=== PATIENT | female | born 1960 | race Caucasian/White ===

== ENCOUNTER 2018-06-26 11:35 | Day surgery (SDC) | payer OTHER ==
[2018-06-23 10:21] LABS: Urine Appearance CLEAR; Urine Bilirubin NEGATIVE (NEG); Urine Blood NEGATIVE (NEG); Urine Color YELLOW; Urine Glucose NEGATIVE (NEG); Urine Protein NEGATIVE (NEG); Urine Specific Gravity 1.025 (1.005-1.030); Urine Urobilinogen 0.2 mg/dL (0.2-1.0)
[2018-06-23 10:25] LABS: Urine Microscopic Reflex NO UMIC
[2018-06-23 10:29] LABS: Absolute Lymphocytes (CBC) 1.9 K/uL (0.7-4.9); Absolute Monocytes 0.6 K/uL (0.1-1.3); Absolute Neutrophil 4.9 K/uL (1.8-8.0); Basophils % 0.8 % (0-1.3); Eosinophils % 1.4 % (0-4.4); Hematocrit 43.9 % (36.0-45.0); Lymphocytes % 25.2 % (15.3-44.8); MPV 9.1 fL (7.6-11.3); Monocytes % 7.5 % (3.3-12.3); RBC Red Blood Cell Count 5.08 M/uL (3.86-4.86)
--- OUTSIDE RECORDS SUMMARY | 2018-06-26 11:37 | XMS REPORT | Encounter Summary ---
:1960 Author Care Team Providers Name Role Phone Maximino Bourne MD Primary Care Provider [phone] Reason for Visit Follow Up Visit Instructions 1. Pelvic mass 2. Hypercholesterolemia Discussion Note: None recorded.Patient educational handouts: No information available. Plan of Care Reminders Provider Appointments None recorded. Lab None recorded. Referral None recorded. Procedures None recorded. Surgeries None recorded. Imaging None recorded. Medications Name Start Date estradiol 0.01% (0.1 mg/gram) vaginal cream simvastatin 10 mg tablet TAKE 1 TABLET BY MOUTH EVERY DAY Medications Administered None recorded. Vitals Height Weight BMI Blood Pressure 66 in 182 lbs 16 oz 29.5 kg/m2 122/82 mm[Hg] Lab Results Date Name Specimen Result Interpretation Description Value Range Status Address Lipid Normal Cholesterol, 196 mg/dL <200 [facility] Panel, Total mg/dL Diagnostics - Serum [facility]: [address], [place] Normal HDL Cholesterol 55 mg/dL >50 [facility] mg/dL Diagnostics [facility]: [address], [place] Normal Triglycerides 130 mg/dL <150 [facility] mg/dL Diagnostics [facility]: [address], [place] High LDL-cholesterol 116 mg/dL [facility] (calc) Diagnostics [facility]: [address], [place] Normal Chol/hdlc Ratio 3.6 (calc) <5.0 [facility] (calc) Diagnostics [facility]: [address], [place] High Non HDL 141 mg/dL <130 [facility] Cholesterol (calc) mg/dL Diagnostics - (calc) [facility]: [address], [place] CMP, High Glucose 108 mg/dL 65-99 [facility] Serum or mg/dL Diagnostics - Plasma [facility]: [address], [place] Normal Urea Nitrogen 12 mg/dL 7-25 [facility] (BUN) mg/dL Diagnostics [facility]: [address], [place] Normal Creatinine 0.69 mg/dL 0.50-0.9 [facility] 9 mg/dL Diagnostics [facility]: [address] [facility], [place] Normal eGFR Non-afr. 95 > or=60 [facility] Norwegian mL/min/1.73m2 mL/min/1 Diagnostics - .73m2 [facility]: [address], [place] Normal eGFR 110 > or=60 [facility] [place] mL/min/1.73m2 mL/min/1 Diagnostics - .73m2 [facility]: [address] [facility], [place] BUN/creatinine not 6-22 [facility] Ratio applicable (calc) Diagnostics - (calc) [facility]: [address] [facility], [place] Normal Sodium 140 mmol/L 135-146 [facility] mmol/L Diagnostics [facility]: [address] [address], [place] Normal Potassium 4.6 mmol/L 3.5-5.3 [facility] mmol/L Diagnostics [facility]: [address] [facility], [place] Normal Chloride 104 mmol/L 98-110 [facility] mmol/L [facility]: [address] [facility], [place] Normal Carbon Dioxide 29 mmol/L 20-32 [facility] mmol/L Diagnostics [facility]: [address] [facility], [place] Normal Calcium 9.6 mg/dL 8.6-10.4 [facility] mg/dL [facility]: [address] [facility], [place] Normal Protein, Total 6.9 g/dL 6.1-8.1 [facility] g/dL [facility]: [address] [facility], [place] Normal Albumin 4.4 g/dL 3.6-5.1 [facility] g/dL [facility]: [address] [facility], [place] Normal Globulin 2.5 g/dL 1.9-3.7 [facility] (calc) g/dL Diagnostics (calc) [facility]: [address] [facility], [place] Normal Albumin/globuli 1.8 (calc) 1.0-2.5 [facility] n Ratio (calc) [facility]: [address] [facility], [place] Normal Bilirubin, 0.7 mg/dL 0.2-1.2 [facility] Total mg/dL Diagnostics [facility]: [address] [facility], [place] High Alkaline 194 U/L 33-130 [facility] Phosphatase U/L [facility]: [address] [facility], [place] Normal Ast 18 U/L 10-35 [facility] U/L Diagnostics [facility]: [address] [facility], [place] Normal Alt 15 U/L 6-29 U/L [facility]: [address] [facility], [place] CBC W/ Normal White Blood 5.7 3.8-10.8 [facility] Auto Diff Cell Count thousand/uL thousand Diagnostics - /uL [facility]: [address] [facility], [place] Normal Red Blood Cell 4.96 3.80-5.1 [facility] Count million/uL 0 [facility] million/ [facility]: uL [address] [facility], [place] Normal Hemoglobin 14.5 g/dL 11.7-15. [facility] 5 g/dL [facility]: [address] [place] [address], [place] Normal Hematocrit 43.4 % 35.0-45. [facility] 0 % [facility]: [address] [place] [place] [address], [place] Normal Mcv 87.5 fL 80.0-100 [facility] .[address] [facility]: [address] [place] [place] [address], [place] Normal Mch 29.2 pg 27.0-33. [facility] [address] [facility]: [address] [place] [address], [place] Normal Mchc 33.4 g/dL 32.0-36. [facility] 0 g/dL [facility]: [address] [place] [address], [place] Normal Rdw 12.2 % 11.0-15. [facility] 0 % [facility]: [address] [place] [place] [address], [place] Normal Platelet Count 253 140-400 [facility] thousand/uL thousand Diagnostics - /uL [facility]: [address] [place] [address], [place] Normal Mpv 11.0 fL 7.5-12.[address] [facility] [address] [facility]: [address] [place] [place] [address], [place] Normal Absolute 3637 cells/uL 1500-780 [facility] Neutrophils 0 Diagnostics - cells/uL [facility]: [address] [place] [place] [address], [place] Normal Absolute 1590 cells/uL 850-3900 [facility] Lymphocytes cells/uL [facility]: [address] [facility], [place] Normal Absolute 331 cells/uL 200-950 [facility] Monocytes cells/uL [facility]: [address] [place] [address], [place] Normal Absolute 80 cells/uL 15-500 [facility] Eosinophils cells/uL [facility] Lab: [address], [place] Normal Absolute 63 cells/uL 0-200 [facility] Basophils cells/uL Diagnostics [facility]: [address], [place] Normal Neutrophils 63.8 % [facility] Diagnostics [facility]: [address], [place] Normal Lymphocytes 27.9 % [facility] Diagnostics [facility]: [address], [place] Normal Monocytes 5.8 % [facility] Diagnostics [facility]: [address], [place] Normal Eosinophils 1.4 % [facility] Diagnostics [facility]: [address], [place] Normal Basophils 1.1 % [facility] Diagnostics [facility]: [address], [place] HbA1C Normal Hemoglobin a1C 5.5 % of <5.7 % [facility] (Hemoglob total HGB of total Diagnostics - in a1C), HGB [facility]: Blood [address], [place] Allergies Code Code System Name Reaction Severity Status Onset 214726 RxNorm Macrobid Diarrhea Moderate to Active Severe Nausea Moderate to Active Severe Problems Name Status Onset Date Source Acute Sinusitis Active 03/20/2017 Seasonal Allergy Active 03/20/2017 Pelvic Mass Active 06/11/2018 Hypercholesterolemia Active Encounter Seasonal Allergic Rhinitis Active Encounter Gallstone Active Encounter Cholelithiasis without Obstruction Active Encounter Lower Urinary Tract Infectious Disease Active Encounter Foot Pain Active Encounter Epigastric Pain Active Encounter Hyperglycemia Active Encounter Procedures Date Name Performed by 10/03/2015 Lap Cholecystectomy Information not available 04/08/1999 Hysterectomy Information not available Anesth Tubal Ligation Information not available Vaccine List Vaccine Type influenza, injectable, quadrivalent, preservative free 01/17/20150.5 mL 01/19/20160.5 mL 02/12/2017 Tdap 02/23/20160.5 mL Social History Smoking Status Never Smoker Past Encounters 06/11/2018 Pelvic Mass; Hypercholesterolemia Maximino Bourne MD: [address], [address], [place] [address], Ph. History of Present Illness Note: CC 15 min discussion of rt pelvic mass<div>Pt has been going to [facility] [place] since Jan 2017 has been concerned about area in RLQ pt had Vag Hyst 20 yrs ago no oophorectomy</div><div>now has 6.x 3 cm mass in rt pelvis that is growing since last US</div><div>CC lipids </ div><div>hpi blood work done and satisfactory
<div>< br></div></div>Review of Systems: ROS as noted in the HPI Review of Systems None recorded. Physical Exam Notes: consultation
[2018-06-26] MEDS ORDERED: Ringers Lactate 1,000 ML IV ONE (11:58)
[2018-06-26] MEDS ORDERED: SCOPOLAMINE HYDROBROMIDE PATCH TD ONE (11:58)
[2018-06-26] MEDS ORDERED: MIDAZOLAM HCL 2 MG/2 ML INJ ONE (13:03)
[2018-06-26] MEDS ORDERED: PROPOFOL 200 MG/20 ML VIAL IV ONE (13:03)
[2018-06-26] MEDS ORDERED: ONDANSETRON 4 MG/2 ML VIAL ONE (13:04)
[2018-06-26] MEDS ORDERED: FENTANYL CITR 250 MCG/5 ML ONE (13:04)
[2018-06-26] MEDS ORDERED: LIDOCAINE 2% MPF 5 ML VIAL ONE (13:04)
[2018-06-26] MEDS ORDERED: ROCURONIUM 50 MG/5 ML VIAL IV ONE (13:04)
[2018-06-26] MEDS ORDERED: CEFAZOLIN SODIUM 1 GM/VIAL ONE (14:19)
[2018-06-26] MEDS ORDERED: KETOROLAC 30 MG/ML INJ ONE (15:03)
[2018-06-26] MEDS ORDERED: NEOSTIGMINE 1 MG/ML -10 ML VIAL ONE (15:05)
[2018-06-26] MEDS ORDERED: GLYCOPYRROLATE 0.2 MG/ML SYR ONE ×2 (15:05)
[2018-06-26] MEDS: HYDROMORPHONE HCL 1 MG/ML INJ ONE ×2 (15:28→15:40)
--- NOTE | 2018-06-27 01:43 | OP ---
Date of Procedure: 06/26/2018 Surgeon: Jasmine Fischer MD Preoperative Diagnoses: Right lower quadrant pain, right adnexal mass/lump, possible tube versus oth er pathology. Postoperative Diagnoses: Right lower quadrant pain, dilated appendix, bilateral hydrosalpinges. Procedures Performed: Laparoscopic bilateral salpingo-oophorectomy, pelvic washings, and appendectom y. Anesthesia: General endotracheal. Specimens: Appendix, bilateral tubes and ovaries, and pelvic washings. Estimated Blood Loss: Minimal. Complications: No complications. Drains: None. Condition: Stable. Findings: Bilateral tubes were swollen and had nodular structures within them, possibly from her gauri or tubal ligation. Ovaries appeared to be unremarkable. The large bowel sigmoid adhered to the left lateral wall and the vaginal apex at the level of the vaginal cuff. Both tubes were adhered to the lateral sidewall as well as the vaginal cuff. Both ureters completely free, anatomically undistorted. The appendix in the distal 4/5th was dilated without any evidence of a clear mass. No other abnormalities. Indications For Procedure: The patient is a 58-year-old patient, referred to me for pain. She had C AT scan and transvaginal ultrasound in 2018. She had a 3 cm ovarian cyst versus a fluid collection. We monitored the size of this over the period of a year. She had a repeat imaging test which showed increase in the size of the dilation. This was a CT scan of the dilated structure. She had a colon oscopy in the last [address] Lora, which was negative. No other GI or obstetrician gynecologist etiology has been i dentified. Her CBC was completely normal. White cell count normal. No urinary tract pathology was noted. We discussed that the size of the adnexal mass which appeared to be dilated structure had inc reased over time. Her CA-125 at baseline was 6 and negative. So, we discussed about the benefits an d risks of observation versus laparoscopy. After discussing the benefits and risks, the patient want ed to proceed with and consented for laparoscopy, pelvic washings, bilateral salpingo-oophorectomy, a nd appendectomy. In case there was cancer diagnosed, she would be referred to an oncologist postoper atively. The dilated tubes could represent tubal cancer or tubo-ovarian cancer or benign pathology. The patient understood everything and was consented and brought to the OR. Description Of Procedure: After informed consent was verified, patient was taken back to the OR, [facility] in a supine fashion on the operating table. After general anesthesia was given, she was placed i n a dorsal lithotomy position using Travis stirrups. Pelvic exam was performed. No notable findings other than thickening at the vaginal cuff on the left side. Abdomen, vulva, vagina, and perineum were prepped and draped in a sterile fashion. Tang was placed to drain the bladder and a sponge stick with a sponge was placed in the vagina for retraction in the vagina. This area was then draped. A 1 cm infraumbilical incision was made with a scalpel using the open laparoscopy technique. Fascia was incised and tagged. Peritoneum was entered bluntly. S retractors placed. Trevor introduced. S ite of entry was checked and was unremarkable. All the pelvic structures were identified after placi ng the patient in Trendelenburg position. Three 5-mm trocars were placed in the suprapubic and bilat eral lower quadrants. After the pelvic washings were performed, the lateral broad ligament was opene d up. The tube was dissected laterally and then it was taken down from the level of the fimbriated e nd all the way to the level of the vaginal apex and the tube on the left side was first removed. The n, the ovary was removed after isolating the infundibulopelvic ligament. This was taken down with th e help of the LigaSure. The rest of the ovary was dissected. Before this was done, the adhesions of the sigmoid colon had to be taken down. The sigmoid colon was adhered all the way from the left inf undibulopelvic ligament all the way to the level of the vaginal cuff. In a systematic fashion and wi th sharp scissors, the adhesions of the bowel were taken down. Adhesions of the epiploica to the lat eral wall were all taken down. Once the entire adhesion complex was removed, then I was able to visu jeanne the left ovary and tube, and then they were removed as dictated above. On the right side, the tube was adhered to the vaginal apex as well as the lateral wall. So first, t he lateral wall was opened up, the tube was dissected free and the mesosalpinx. Then, the adhesions at the cuff were taken down. Then, the infundibulopelvic ligament was isolated. This was taken down with the help of the LigaSure. Then, the rest of the ovary was removed. All these were placed in t he posterior cul-de-sac. The appendix as it was dilated was left for the last. Then, picked up the appendix. The base of the mesoappendix was identified. With the help of a Chayito grasper, a window was made at the base of the appendix very close to the cecum. Then, a laparoscopic stapler was take n. The white load was placed for the bowel and this was inserted through the window and placed at th e very base of the cecum. The stapler was fired first. On the initial load, after firing it partial ly, it did not close, so that was removed, and after the reload was taken the entire area was stapled again without making sure that no crushed tissue was left. Then, the mesoappendix was identified. There was thickening of the mesoappendix, possibly a lymph node present, so the dissection was perfor med below this, opening up both sides of the peritoneum covering the mesoappendix. Then, the mesoapp endix was taken down after identifying the area of the vascular supply. All this was taken down with the help of the LigaSure successfully without any problems. Thorough irrigation and suction was per formed. No evidence of any bleeding. Then, a laparoscopic bag was introduced through the umbilical trocar. The appendix was placed inside first, then both ovaries and tubes were placed inside, and af ter the bag was closed they were removed through the umbilical trocar. All the ports were removed under direct visualization. There was excellent hemostasis. The bag was removed without any contamination. A small amount of mucus material was coming out through the bag, so this was carefully removed without spilling on the incision. Then, all the gloves were changed. All the sponges were changed. Thorough irrigation and suction was performed of the subcutaneous tiss ue here. After two [id number] with 0 Vicryl were placed, then the fascia closed. Then, the i rrigation was conducted on the top. The skin was closed with jono and the vaginal sponge was removed. Tang was removed. Instrument, needle, and sponge counts were done and were correct at the end of the case. Intraoperatively, Dr. Agarwal was in the room helping me while observing the appendectomy. No further surgery to be needed for this patient. We will follow up the pathology and then proceed with the plan. Instrument, need le, and sponge counts were correct at the end of the case. The patient tolerated the procedure well. She was extubated in the OR and taken to PACU in stable condition. She will be placed on Keflex 25 0 mg p.o. q.i.d. for 7 days. This is because there was anterior abdominal wall contamination with a broken glove. This is prophylactic. Did not contaminate the wound. This was inferior to the umbili alex incision and not on any of the incisions sites. ARACELI/LUCY Voice ID: [id number] Report ID: [id number]
== END 2018-06-26 17:46 | disposition home or self-care (01) ==
LOC: OR 11:35
PROVIDERS: ATTEND Obstetrics & Gynecology
PROC: 0UT74ZZ Resection of Bilateral Fallopian Tubes, Percutaneous Endoscopic Approach (ICD-10-PCS; 2018-06-26)
PROC: 0DTJ4ZZ Resection of Appendix, Percutaneous Endoscopic Approach (ICD-10-PCS; 2018-06-26)
PROC: 0UT24ZZ Resection of Bilateral Ovaries, Percutaneous Endoscopic Approach (ICD-10-PCS; principal; 2018-06-26 13:00)
DX: N70.11 Chronic salpingitis (principal); N95.2 Postmenopausal atrophic vaginitis; N94.10 Unspecified dyspareunia; R10.2 Pelvic and perineal pain; N73.6 Female pelvic peritoneal adhesions (postinfective); K38.8 Other specified diseases of appendix; C18.1 Malignant neoplasm of appendix; E78.00 Pure hypercholesterolemia, unspecified; Z79.899 Other long term (current) drug therapy
CPT/HCPCS: 36415; 81003; 85025; 86850; 86900; 86901; J0690; J1170; J2250; J2405; J2704; J2710; J3010